=== PATIENT | male | born 1950 | race Caucasian/White ===

== ENCOUNTER 2025-01-26 11:13 | Emergency (ER) | payer OTHER ==
[2025-01-26 11:52] LABS: Absolute Eosinophils 0.1 K/uL (0-0.5); Absolute Lymphocytes (CBC) 1.5 K/uL (0.7-4.9); Absolute Monocytes 0.7 K/uL (0.1-1.3); Absolute Neutrophil 3.5 K/uL (1.8-8.0); Basophils % 0.6 % (0-1.3); Hematocrit 47.9 % (39.6-49.0); Hemoglobin 16.5 g/dL (13.6-17.9); Lymphocytes % 26.5 % (15.3-44.8); MCH 33.5 pg (27.0-35.0); MCHC 34.5 g/dL (32.0-36.0); MCV 97.1 fL (80-100); MPV 8.6 fL (7.6-11.3); Monocytes % 11.3 % (3.3-12.3); Neutrophils % 60.6 % (41.7-73.7); Platelets 181 thou/uL (152-406); RBC Red Blood Cell Count 4.94 M/uL (4.33-5.43); Red Cell Distribution Width 13.9 % (12.1-15.2)
[2025-01-26 11:57] LABS: PT Prothrombin Time 15.1 SECONDS (10-13.0); Protime INR 1.34
--- NOTE | 2025-01-26 12:04 | RAD REPORT ---
EXAM: Chest Single View HISTORY: 74 years Male bradycardia COMPARISON: None. FINDINGS: LUNGS/PLEURA: The lungs are clear. No pleural effusions or pneumothorax. No pulmonary edema. CARDIAC/MEDIASTINUM: Magnified by portable technique, but probably within normal limits. UPPER ABDOMEN: No significant abnormality. BONES: No acute abnormality. LINES/TUBES/OTHER: N/A IMPRESSION: No evidence of acute cardiopulmonary disease.
[2025-01-26 12:11] LABS: Albumin 3.6 g/dL (3.4-5.0); Albumin/Globulin Ratio 0.9 (1.1-1.8); Anion Gap 11.4 mEq/L (5.0-15.0); Bilirubin Direct 0.3 mg/dL (0-0.2); Bilirubin Indirect, Calculated 0.9 mg/dL (0.2-0.8); Bilirubin Total 1.2 mg/dL (0.2-1.0); Globulin 3.8 g/dL (2.3-3.5); Potassium 4.4 mEq/L (3.5-5.1); Protein, Total 7.4 g/dL (6.4-8.2)
--- NOTE | 2025-01-26 12:13 | ER ---
Nurse's Notes [facility] Name: Johnie Owens Age: 74 yrs Sex: Male : 1950 Arrival Date: 01/26/2025 Time: 11:13 Bed 5 Private MD: Diagnosis: Unspecified atrial flutter;Bradycardia, unspecified Presentation: 01/26 11:31 Chief complaint: Patient states: sent by PCP Dr. Montero for low HR , was being seen for regular check up. Coronavirus screen: At this time, the client does not indicate any symptoms associated with coronavirus-19. Ebola Screen: No symptoms or risks identified at this time. Initial Sepsis Screen: Does the patient meet any 2 criteria? No. Patient's initial sepsis screen is negative. Does the patient have a suspected source of infection? No. Patient's initial sepsis screen is negative. Risk Assessment: Do you want to hurt yourself or someone else? Patient reports no desire to harm self or others. Onset of symptoms was January 26, 2025. 11:31 Method Of Arrival: Ambulatory 11:31 Acuity: JOSIAH 2 Triage Assessment: 11:35 General: Appears in no apparent distress. comfortable, Behavior is cooperative, bp appropriate for age, anxious. Pain: Denies pain. EENT: No deficits noted. Neuro: No deficits noted. Cardiovascular: No deficits noted. Respiratory: No deficits noted. GI: No signs and/or symptoms were reported involving the gastrointestinal system. : No signs and/or symptoms were reported regarding the genitourinary system. Derm: No deficits noted. Musculoskeletal: No deficits noted. Historical: - Allergies: 11:34 No Known Allergies; - Home Meds: 11:34 lisinopril 30 mg Oral tablet daily [Active]; simvastatin 40 mg Oral tablet every day at bedtime [Active]; Eliquis 5 mg oral tablet 2 times per day [Active]; - Immunization history:: Adult Immunizations up to date. - Infectious Disease History:: Denies. - Social history:: Smoking status: Patient denies any tobacco usage or history of. Screenin:48 [facility] ED Fall Risk Assessment (Adult) History of falling in the last 3 months, bp including since admission No falls in past 3 months (0 pts) Confusion or Disorientation No (0 pts) Intoxicated or Sedated No (0 pts) Impaired Gait No (0 pts) Mobility Assist Device Used No (0 pt) Altered Elimination No (0 pt) Score/Fall Risk Level 0 - 2 = Low Risk Oriented to surroundings. Abuse screen: Denies threats or abuse. Denies injuries from another. Nutritional screening: No deficits noted. Tuberculosis screening: No symptoms or risk factors identified. Assessment: 11:48 General: SEE TRIAGE NOTE. bp 14:10 Reassessment: REPORT TO [facility] AT [facility]. bp 15:19 Reassessment: PT CAROL WITH EMS. bp Vital Signs: 11:31 BP 211 / 80; Pulse 34; Resp 16; Pulse Ox 98% on R/A; iw 13:00 BP 183 / 68; Pulse 32; Resp 15; Pulse Ox 95% ; bp 14:09 BP 160 / 68; Pulse 34; Resp 18; Pulse Ox 96% ; bp 15:19 BP 211 / 72; Pulse 41; Resp 18; Pulse Ox 97% ; bp ED Course: 11:16 Patient arrived in ED. im 11:17 Stephan Díaz DO is Attending Physician. ms3 11:34 Triage completed. iw 11:35 Ray Gabriel, HARRISON is Primary Nurse. bp 11:35 Arm band placed on. bp 11:46 Initial lab(s) drawn, by me, sent to lab. EKG done, by ED staff, reviewed by Stephan Díaz DO. Inserted saline lock: 20 gauge in right forearm, using aseptic technique. Blood collected. Flushed with 10 mL NS. 11:48 Patient has correct armband on for positive identification. bp 12:02 XRAY Chest (1 view) In Process Unspecified. EDMS 12:22 initiated transfer with Sheron Gutierrez at the [facility] transfer [place]. eb 12:54 connected the puncher and fastener national van truck driver for [facility] with Dr. Díaz for patient eb transfer consultation. 13:[address] Howard the emergency room doctor national van truck driver for [facility] with Dr. Bre hargrove for patient transfer consultation. 13:18 administrative approval given by Yadi Gutierrez Rn/ patient has been accepted to [facility]/ Dr. Violetta Howard has accepted the patient in transfer/ report to be called to [phone]. 15:20 No provider procedures requiring assistance completed. Patient transferred, IV remains bp in place. Administered Medications: 13:10 Drug: hydrALAZINE IVP 10 mg IVP once Route: IVP; Site: right forearm; bp 14:14 Follow up: Response: No adverse reaction bp Medication: 11:48 VIS not applicable for this client. bp Outcome: 12:13 ER care complete, transfer ordered by ms3 15:20 Transferred by ground EMS to [facility], bp 15:20 Condition: stable 15:20 Instructed on the need for transfer, 15:20 Patient left the ED. bp Signatures: Dispatcher [employer] EDMS Shobha May RN RN iw Ray Gabriel RN RN Bel Sweet Marcus, DO DO ms3 Carla Malone
--- NOTE | 2025-01-26 12:14 | EDPHYS ---
Physician Documentation [facility] Name: Johnie Owens Age: 74 yrs Sex: Male : 1950 Arrival Date: 01/26/2025 Time: 11:13 Bed 5 Private MD: ED Physician Stephan Díaz HPI: 01/26 11:38 This 74 yrs old Male presents to ER via Ambulatory with complaints of low heart rate. ms3 12:09 74-year-old male with past medical history of hypertension, atrial flutter, ms3 hyperlipidemia presents to the emergency department from Dr. Montero's office. Patient states he was at his primary care physician office for a follow-up after being started on a new hyperlipidemia medication. In the office his heart rate was noted to be low in the 30s. Patient denies symptoms. Patient denies nausea, vomiting, shortness of breath.. Historical: - Allergies: 11:34 No Known Allergies; iw - Home Meds: 11:34 lisinopril 30 mg Oral tablet daily [Active]; simvastatin 40 mg Oral tablet every day at iw bedtime [Active]; Eliquis 5 mg oral tablet 2 times per day [Active]; - Immunization history:: Adult Immunizations up to date. - Infectious Disease History:: Denies. - Social history:: Smoking status: Patient denies any tobacco usage or history of. ROS: 12:09 Constitutional: Negative for fever, and chills. Cardiovascular: Negative for chest ms3 pain, and palpitations. Respiratory: Negative for shortness of breath, cough, wheezing, and pleuritic chest pain, Abdomen/GI: Negative for abdominal pain, nausea, vomiting, diarrhea, and constipation, MS/Extremity: Negative for injury and deformity, Exam: 12:09 Constitutional: This is a well developed, well nourished patient who is awake, alert, ms3 and in no acute distress. Respiratory: Lungs have equal breath sounds bilaterally, clear to auscultation and percussion. No rales, rhonchi or wheezes noted. No increased work of breathing, no retractions or nasal flaring. Abdomen/GI: Soft, non-tender, with normal bowel sounds. No distension or tympany. No guarding or rebound. No evidence of tenderness throughout. Skin: Warm, dry with normal turgor. Normal color with no rashes, no lesions, and no evidence of cellulitis. 12:09 Cardiovascular: Rate: bradycardic, Rhythm: regular, Pulses: no pulse deficits are appreciated, Heart sounds: normal, normal S1and S2, 12:21 ECG was reviewed by the Attending Physician. ms3 Vital Signs: 11:31 BP 211 / 80; Pulse 34; Resp 16; Pulse Ox 98% on R/A; iw 13:00 BP 183 / 68; Pulse 32; Resp 15; Pulse Ox 95% ; bp 14:09 BP 160 / 68; Pulse 34; Resp 18; Pulse Ox 96% ; bp 15:19 BP 211 / 72; Pulse 41; Resp 18; Pulse Ox 97% ; bp MDM: 11:26 Medical Screening Exam initiated ms3 12:09 Differential diagnosis: abnormal EKG, acute myocardial infarction, Hyperkalemia. ED ms3 course: Attempted to call patient's lathe tender, Dr Arnie Leyva, without an answer on the physician line.. 12:13 Data reviewed: vital signs, nurses notes, lab test result(s), EKG, radiologic studies, ms3 and as a result, I will Will transfer patient. Independent interpretation of the following test(s) in the Emergency Department EKG: See my EKG interpretation above. Care significantly affected by the following chronic conditions: Hypertension. Counseling: I had a detailed discussion with the patient and/or guardian regarding the historical points, exam findings, and any diagnostic results supporting the discharge/admit diagnosis, lab results, radiology results, the need for outpatient follow up, to return to the emergency department if symptoms worsen or persist or if there are any questions or concerns that arise at home. 12:21 ED course: Dr Mccurdy in the Emergency Department to see patient. He recommends transfer ms3 for pacemaker placement.. 12:56 ED course: Discussed case with Dr Diana and patient will need CCU. Recommends ms3 Hydralazine for blood pressure control.. 13:18 ED course: Discussed case with Dr Howard and she accepts patient to [facility]. All ms3 questions answered.. ED course: Patient and his updated on necessity for transfer. They understand/ agree with plan. 01/26 11:27 Order name: Basic Metabolic Panel; Complete Time: 12:12 ms3 01/26 11:27 Order name: CBC with Diff; Complete Time: 12:09 ms3 01/26 11:27 Order name: LFT's; Complete Time: 12:12 ms3 01/26 11:27 Order name: Magnesium; Complete Time: 12:12 ms3 01/26 11:27 Order name: NT PRO-BNP; Complete Time: 12:12 ms3 01/26 11:27 Order name: PT-INR; Complete Time: 12:09 ms3 01/26 11:27 Order name: Troponin HS; Complete Time: 12:12 ms3 01/26 11:27 Order name: XRAY Chest (1 view); Complete Time: 12:09 ms3 01/26 11:27 Order name: Cardiac monitoring; Complete Time: 11:46 ms3 01/26 11:27 Order name: EKG - Nurse/Tech; Complete Time: 11:46 ms3 01/26 11:27 Order name: IV Saline Lock; Complete Time: 11:46 ms3 01/26 11:27 Order name: Labs collected and sent; Complete Time: 11:46 ms3 01/26 11:27 Order name: O2 Per Protocol; Complete Time: 11:46 ms3 01/26 11:27 Order name: O2 Sat Monitoring; Complete Time: 11:46 ms3 EC:21 Rate is 35 beats/min. Rhythm is irregular. QRS [place] is Normal. MD interval is normal. ms3 QRS interval is normal. Clinical impression: Atrial Flutter and bradycardia. Interpreted by me. Reviewed by me. Administered Medications: 13:10 Drug: hydrALAZINE IVP 10 mg IVP once Route: IVP; Site: right forearm; bp 14:14 Follow up: Response: No adverse reaction bp Disposition Summary: 01/26/25 12:13 Transfer Ordered Notes: Transfer Location: [facility] ms3 Reason: Higher level of care ms3 Condition: Stable ms3 Problem: new ms3 Symptoms: are unchanged ms3 Accepting Physician: (01/26/25 15:20) bp Diagnosis - Unspecified atrial flutter ms3 - Bradycardia, unspecified ms3 Forms: - Medication Reconciliation Form ms3 - SBAR form ms3 Signatures: Dispatcher [employer] EDShobha Dotson RN Ray Doran RN RN bp Stephan Díaz DO DO ms3 Corrections: (The following items were deleted from the chart) 11: 11:28 BASIC METABOLIC PANEL+C.LAB.BRZ ordered. EDMS EDMS : 11:28 CBC+H.LAB.BRZ ordered. EDMS EDMS : 11:28 HEPATIC FUNCTION+C.LAB.BRZ ordered. EDMS EDMS : 11:28 MAGNESIUM+C.LAB.BRZ ordered. EDMS EDMS : 11:28 PROBNP+C.LAB.BRZ ordered. EDMS EDMS : 11:28 PROTIME (+INR)+COAG.LAB.BRZ ordered. EDMS EDMS : 11:28 Troponin High Sensitivity+C.LAB.BRZ ordered. EDMS EDMS : 11:28 Chest Single View+RAD.RAD.BRZ ordered. EDMS EDMS 15:20 12:13 Dr ms3 bp
[2025-01-26] MEDS ORDERED: HYDRALAZINE HCL 20 MG/ML VIAL ONE (13:09)
[2025-01-26 16:15] VITALS: BP 211/72; O2SAT 97
--- NOTE | 2025-01-29 12:07 | EKG ---
Test Date: 2025-01-26 Test Time: 11:27:52 Superintendent Tests: SERGEY MEASUREMENT RESULTS: Intervals: Rate: 35 NH: QRSD: 96 QT: 490 QTc: 374 [place]: P: 69 NH: QRS: -2 T: 28 INTERPRETIVE STATEMENTS: Atrial flutter with variable AV block Junctional ST depression, probably normal Abnormal ECG No previous ECG available for comparison Electronically Signed On 01-29-25 12:05:30 CDT by Deng Ingram
== END 2025-01-26 15:20 | disposition short-term general hospital (02) ==
LOC: ER 11:13
DX: I48.92 Unspecified atrial flutter (principal); I10 Essential (primary) hypertension; E78.5 Hyperlipidemia, unspecified; Z79.01 Long term (current) use of anticoagulants
CPT/HCPCS: 93005; 85025; 80048; 36415; 83735; 85610; 80076; 84484; 83880; 71045; 96374; 99285; J0360